=== PATIENT | male | born 1990 | race Caucasian/White ===

== ENCOUNTER 2023-08-09 10:45 | Emergency (ER) | payer OTHER ==
[2023-08-09] MEDS ORDERED: Acetaminophen 500 MG TAB ONE (12:01)
== END 2023-08-09 16:15 ==
LOC: ERS 10:45 → EEVIPCON 10:45 → ERS 16:15
DX: S02.31XA Fracture of orbital floor, right side, initial encounter for closed fracture (principal); S02.841A Fracture of lateral orbital wall, right side, initial encounter for closed fracture; Y04.2XXA Assault by strike against or bumped into by another person, initial encounter; Y92.149 Unspecified place in prison as the place of occurrence of the external cause
CPT/HCPCS: 70450; 70486; 72125